=== PATIENT | female | born 1960 | race Caucasian/White ===

== ENCOUNTER 2018-06-10 00:27 | Emergency (ER) | payer BC ==
[~2018-06-10] VITALS: Ht 162.6 cm; Wt 109.8 kg
[~2018-06-10 00:27] MED LIST: COLACE; LEVOTHYROXINE; LOSARTAN; METFORMIN; PROTONIX
[2018-06-10 00:35] VITALS: Ht 162.6 cm; Wt 109.8 kg
--- NOTE | 2018-06-10 01:14 | ERD ---
ER Documentation Chief Complaint Chief Complaint Drooling HPI The patient is a 57-year-old female, presenting to the ER because she first noted her eye fluttering around 9:30 AM. She later noticed drooling around 5 PM while she was brushing her teeth. She complains of eyes watery, denies blurred vision, headache, facial pain, neck pain, decrease sensation of her tongue and unable to close her right eye completely, denies chest pain, dyspnea, abdominal pain, vomiting, dysuria, diarrhea. She does not smoke nor drink Past medical history: Hypothyroidism, hypertension, diabetes mellitus Past surgical history: 3 , tubal ligation, cholecystectomy ROS All systems reviewed and are negative except as per history of present illness. Medications Home Meds Active Scripts Mineral Oil/Lanolin Oil (Lacri-Lube) 3.5 Gm Oint, 1 APPLIC OP as needed for dried eye for 7 Days, #1 EA Prov:JASMIN GERBER MD 06/10/18 Valacyclovir Hcl* (Valtrex*) 500 Mg Tablet, 1000 MG PO TID for 7 Days, TAB Prov:JASMIN GERBER MD 06/10/18 Reported Medications Omeprazole* (Omeprazole*) 20 Mg Capsule.dr, 20 MG PO DAILY, #30 CAP 06/10/18 Levothyroxine Sodium* (Levothyroxine Sodium*) 25 Mcg Tablet, 25 MCG PO BEFORE BREAKFAST, #30 TAB 06/10/18 Metformin* (Glucophage*) 500 Mg Tab, 500 MG PO WITH BREAKFAST DINNE, #30 TAB 06/10/18 Losartan Potassium* (Losartan Potassium*) 50 Mg Tablet, 50 MG PO BID, TAB 06/10/18 Discontinued Reported Medications [Protonix] No Conflict Check 10/24/15 [Levothyroxine] No Conflict Check 10/24/15 [Metformin] No Conflict Check 10/24/15 [Losartan] No Conflict Check 10/24/15 [Colace] No Conflict Check 10/24/15 Allergies Allergies: Coded Allergies: No Known Allergy (Unverified , 06/10/18) PMhx/Soc History of Surgery: Yes ( X3, TUBAL LIGATION, CHOLECYCESTOMY) Anesthesia Reaction: No Hx Neurological Disorder: No Hx Respiratory Disorders: No Hx Cardiac Disorders: Yes (HYPERTENSION) Hx Psychiatric Problems: No Hx Miscellaneous Medical Probl: No Hx Alcohol Use: No Hx Substance Use: No Hx Tobacco Use: No Physical Exam Vitals Vital Signs Date Temp Pulse Resp B/P (MAP) Pulse Ox O2 O2 Flow FiO2 Time Delivery Rate 06/10/18 100 20 173/74 96 Room Air 02:00 (107) 06/10/18 110 16 195/93 98 Room Air 01:40 (127) 06/10/18 117 26 205/98 98 Room Air 00:45 (133) 06/10/18 99.0 111 20 235/109 99 00:35 (151) Physical Exam Const: No acute distress. Head: Atraumatic. Left frontal muscle weakness Eyes: Normal Conjunctiva. Eye watery discharge ENT: Normal External Ears, Nose and Mouth. Unable to close her left eye completely Neck: Full range of motion. No meningismus. Resp: Clear to auscultation bilaterally. Cardio: Regular rate and rhythm. Abd: Soft, non distended, normal bowel sounds, non tender. Skin: No petechiae or rashes. Back: No midline or flank tenderness. Ext: No cyanosis, or edema. Neur: Awake and alert. No focal deficit. Left facial droop Psych: Normal Mood and Affect. Result Diagram: 06/10/18 0110 06/10/18 0110 Results 24 hrs Laboratory Tests Test 06/10/18 01:10 06/10/18 01:15 06/10/18 02:26 White Blood Count 9.3 10^3/ul Red Blood Count 4.79 10^6/ul Hemoglobin 12.7 g/dl Hematocrit 40.6 % Mean Corpuscular Volume 84.8 fl Mean Corpuscular Hemoglobin 26.5 pg Mean Corpuscular Hemoglobin Concent 31.3 g/dl Red Cell Distribution Width 13.4 % Platelet Count 231 10^3/UL Mean Platelet Volume 12.7 fl Immature Granulocytes % 0.400 % Neutrophils % 54.3 % Lymphocytes % 36.1 % Monocytes % 7.5 % Eosinophils % 1.4 % Basophils % 0.3 % Nucleated Red Blood Cells % 0.0 /100WBC Immature Granulocytes # 0.040 10^3/ul Neutrophils # 5.0 10^3/ul Lymphocytes # 3.4 10^3/ul Monocytes # 0.7 10^3/ul Eosinophils # 0.1 10^3/ul Basophils # 0.0 10^3/ul Nucleated Red Blood Cells # 0.0 10^3/ul Prothrombin Time 11.6 Sec Prothrombin Time Ratio 0.9 INR International Normalized Ratio 0.84 Activated Partial Thromboplast Time 28.0 Sec Sodium Level 138 mmol/L Potassium Level 3.7 mmol/L Chloride Level 99 mmol/L Carbon Dioxide Level 24 mmol/L Anion Gap 15 Blood Urea Nitrogen 17 mg/dl Creatinine 0.61 mg/dl Est Glomerular Filtrat Rate mL/min > 60 mL/min Glucose Level 492 mg/dl Calcium Level 9.2 mg/dl Bedside Urine pH (LAB) 6.0 Bedside Urine Protein (LAB) 1+ Bedside Urine Glucose (UA) 0.50% Bedside Urine Ketones (LAB) Negative Bedside Urine Blood Trace-intact Bedside Urine Nitrite (LAB) Negative Bedside Urine Leukocyte Esterase (L Negative Bedside Glucose 399 mg/dL Current Medications Medications Dose Sig/Jimmy Start Time Status Last (Trade) Ordered Route PRN Stop Time Admin Dose Reason Admin Labetalol 20 mg ONCE ONCE 06/10/18 DC 06/10/18 HCl IV 01:30 06/10/18 01:35 (Labetalol) 01:32 Insulin 14 unit ONCE ONCE 06/10/18 DC 06/10/18 Human SC 02:30 06/10/18 02:37 Lispro 02:31 (Humalog) Procedures/[place] [id number] Radiology Main Line: [phone] DIAGNOSTIC IMAGING REPORT Patient: EULALIO VIDAL : 1960 Age: 57 Sex: F [id number] DOS: 06/10/18 0130 Ordering MD: JASMIN GERBER MD Location: E/R Room/Bed: PROCEDURE: CT Brain without contrast. CLINICAL INDICATION: Headache. TECHNIQUE: Axial images from the skull base through the vertex without IV co ntrast. Multiplanar reformatted images were made. Images were reviewed on a PACS workstation. The CTDIvol is 39.64 mGy and the DLP is 634.23 mGy-cm. One or more of the following dose reduction techniques were used: automated exposure control, adjustment of the mA and/or kV according to patient size, or use of iterative reconstruction technique. DICOM images are available. COMPARISON: None. FINDINGS: No acute intracranial hemorrhage or extraaxial fluid collection, midline shift or mass effect. Garber-white delineation is maintained. No identifiable acute or recent territorial infarct. Mild ventricular and sulcal prominence consistent mild generalized volume loss, commensurate with age. No evidence of hydrocephalus. Hypoplastic appearance of the maxillary sinuses, with mild mucosal thickening of the right along with opacification of several right ethmoid air cells. Remainin g paranasal sinuses are clear. Mastoid air cells are clear. Mild calcified intracranial atherosclerosis. Intact calvarium. IMPRESSION: No definite acute intracranial abnormality including no intracranial hemorrhage, mass effect or hydrocephalus. Right-sided paranasal sinus disease includes filling of several right ethmoid air cells and mild mucosal thickening within the hypoplastic right maxillary sinus. Calcified intracranial atherosclerosis RPTAT: [facility] Physician Rad Date Time Electronically viewed and signed by Physician Rad on 06/10/2018 02:45 RF/ CC: JASMIN GERBER MD [id number] EKG: Read by emergency physician Rate/Rhythm: Sinus tachycardia 114 beats/min QRS, ST, T-waves: No ST elevation, no T inversion, LVH Impression: Abnormal EKG MEDICAL MAKING DECISION: The patient is a 57-year-old female, presenting with acute Cat palsy, acute diabetic hyperglycemia, acute accelerated hypertension. She was treated with labetalol 20 mg IV for acute accelerated hypertension, 14 units of Humalog subcu for acute hyperglycemia with good response, is stable for outpatient follow-up The differential diagnoses considered include but are not limited to TIA, medical noncompliance, dietary noncompliance, HHS, DKA Departure Diagnosis: Primary Impression: Cat palsy Additional Impressions: Accelerated hypertension Hyperglycemia Condition: Good Comments She was discharged with Valtrex and Lacri-Lube I discussed the findings with the patient. I advised the patient to follow-up with the primary physician in about 2-3 days, sooner if needed and return if any concern. Disclaimer: Inadvertent spelling and grammatical errors are likely due to EHR/dictation software use and do not reflect on the overall quality of patient care. Also, please note that the electronic time recorded on this note does not necessarily reflect the actual time of the patient encounter. JASMIN GERBER MD Jun 10, 2018 01:14
[2018-06-10] MEDS ORDERED: LABETALOL HCL 20MG INJ IV ONE (01:30)
[2018-06-10] MEDS ORDERED: INSULIN LISPRO 100 UNIT/ML VIAL SC ONE (02:30)
[2018-06-10] MEDS ORDERED: METF-849 PO (02:59)
[2018-06-10] MEDS ORDERED: LOSA50TA14 PO (02:59)
[2018-06-10] MEDS ORDERED: LEVO25TA6 PO (02:59)
[2018-06-10] MEDS ORDERED: OMEP20CA16 PO (02:59)
[2018-06-10] MEDS ORDERED: VALA500T4 PO (03:52)
[2018-06-10] MEDS ORDERED: LACR35O OP (03:53)
[2018-06-10 04:26] VITALS: BP 157/87; PULSE 89; RESP 16
== END 2018-06-10 04:29 | disposition home or self-care (01) ==
LOC: E/R 00:27
DX: G51.0 Bell's palsy (principal); E11.65 Type 2 diabetes mellitus with hyperglycemia; E03.9 Hypothyroidism, unspecified; I10 Essential (primary) hypertension; Z79.84 Long term (current) use of oral hypoglycemic drugs
CPT/HCPCS: 70450; 80048; 81003; 82962; 85025; 85610; 85730; 93005; J1815; Z7610; 36415; 96372; 96374

== ENCOUNTER 2018-07-03 19:35 | Emergency (ER) | payer BC ==
[~2018-07-03] VITALS: Ht 160 cm; Wt 103.0 kg
[~2018-07-03 19:35] MED LIST changes: -COLACE; +LACR35O OP; +LEVO25TA6 PO; -LEVOTHYROXINE; +LOSA50TA14 PO; -LOSARTAN; +METF-849 PO; -METFORMIN; +OMEP20CA16 PO; -PROTONIX; +VALA500T4 PO
[2018-07-03 19:40] VITALS: Ht 160 cm; Wt 103.0 kg
[2018-07-03] MEDS ORDERED: IPRATROPIUM (NEB) 0.5 MG/2.5 ML AMP NEB STA (20:35)
[2018-07-03] MEDS ORDERED: DEXAMETHASONE 10 MG/ML 1 ML INJ IV STA (20:35)
[2018-07-03] MEDS ORDERED: ALBUTEROL 0.083% (NEB) 2.5 MG/3 ML AMP NEB STA (20:35)
[2018-07-03] MEDS ORDERED: SOD CHLORIDE 0.9% 1,000 ML IV STA (20:35)
[2018-07-04] MEDS ORDERED: AZIT250T PO ×2 (00:22→00:24)
[2018-07-04] MEDS ORDERED: PRED50TA PO (00:22)
[2018-07-04] MEDS ORDERED: ALBU18HF INHALATION (00:22)
[2018-07-04 00:31] VITALS: BP 146/75; PULSE 115; RESP 19
--- NOTE | 2018-07-04 03:06 | ERD ---
ER Documentation Chief Complaint Chief Complaint CP WITH SEVERE COUGH/BATRES X 4 DAYS HPI 57-year-old female with a history of hypertension and diabetes presenting with cough for the past 4 days with associated chest discomfort due to her coughing. Her cough is dry without any phlegm production. She also has difficulty speaking as she has lost her voice. She has had associated fevers and chills. She denies any nausea, vomiting, diarrhea. She has not been taking any medications for her symptoms. ROS All systems reviewed and are negative except as per history of present illness. Medications Home Meds Active Scripts Azithromycin* (Zithromax*) 250 Mg Tablet, 250 MG PO .ZPACK DIRECTED, #6 TAB TAKE 500 MG (2 TABS) THE FIRST DAY THEN 250 MG (1 TAB) DAYS 2-5 Prov:FRITZ PARKS MD 07/04/18 Prednisone* (Prednisone*) 50 Mg Tablet, 50 MG PO DAILY, #5 TAB Prov:FRITZ PARKS MD 07/04/18 Albuterol Sulfate* (Ventolin HFA*) 18 Gm Hfa.aer.ad, 2 PUFF INHALATION Q4H PRN for WHEEZING, #1 INHALER Prov:FRITZ PARKS MD 07/04/18 Mineral Oil/Lanolin Oil (Lacri-Lube) 3.5 Gm Oint, 1 APPLIC OP as needed for dried eye for 7 Days, #1 EA Prov:JASMIN GERBER MD 06/10/18 Valacyclovir Hcl* (Valtrex*) 500 Mg Tablet, 1000 MG PO TID for 7 Days, TAB Prov:JASMIN GERBER MD 06/10/18 Reported Medications Omeprazole* (Omeprazole*) 20 Mg Capsule.dr, 20 MG PO DAILY, #30 CAP 06/10/18 Levothyroxine Sodium* (Levothyroxine Sodium*) 25 Mcg Tablet, 25 MCG PO BEFORE BREAKFAST, #30 TAB 06/10/18 Metformin* (Glucophage*) 500 Mg Tab, 500 MG PO WITH BREAKFAST DINNE, #30 TAB 06/10/18 Losartan Potassium* (Losartan Potassium*) 50 Mg Tablet, 50 MG PO BID, TAB 06/10/18 Allergies Allergies: Coded Allergies: No Known Allergy (Unverified , 06/10/18) PMhx/Soc History of Surgery: Yes ( X3, TUBAL LIGATION, CHOLECYSTECTOMY) Anesthesia Reaction: No Hx Neurological Disorder: No Hx Respiratory Disorders: No Hx Cardiac Disorders: Yes (HYPERTENSION) Hx Psychiatric Problems: No Hx Miscellaneous Medical Probl: Yes (DM) Hx Alcohol Use: No Hx Substance Use: No Hx Tobacco Use: No Smoking Status: Never smoker FmHx Family History: No diabetes Physical Exam Vitals Vital Signs Date Temp Pulse Resp B/P (MAP) Pulse Ox O2 O2 Flow FiO2 Time Delivery Rate 07/04/18 115 19 146/75 96 Room Air 00:31 (98) 07/03/18 111 16 147/71 98 Nasal 2.0 22:55 (96) Cannula 07/03/18 109 18 97 21 21:03 07/03/18 100.0 115 18 188/88 95 19:40 (121) Physical Exam Const: No acute distress frequent dry cough on exam. Head: Atraumatic Eyes: Normal Conjunctiva ENT: Normal External Ears, Nose and Mouth.posterior oropharynx normal without erythema or exudate. No stridor. No drooling. Hoarse voice Neck: Full range of motion. No meningismus. Resp: Diminished breath sounds bilaterally with wheezing. No rales or rhonchi Cardio: Tachycardic with regular rhythm, no murmurs Abd: Soft, non tender, non distended. Normal bowel sounds Skin: No petechiae or rashes Back: No midline or flank tenderness Ext: No cyanosis, or edema Neur: Awake and alert Psych: Normal Mood and Affect Result Diagram: 07/03/18210207/03/182103 Results 24 hrs Laboratory Tests Test 07/03/18 21:03 07/03/18 21:04 White Blood Count 8.8 10^3/ul Red Blood Count 4.50 10^6/ul Hemoglobin 12.1 g/dl Hematocrit 37.8 % Mean Corpuscular Volume 84.0 fl Mean Corpuscular Hemoglobin 26.9 pg Mean Corpuscular Hemoglobin Concent 32.0 g/dl Red Cell Distribution Width 14.4 % Platelet Count 245 10^3/UL Mean Platelet Volume 11.5 fl Immature Granulocytes % 0.300 % Neutrophils % 65.0 % Lymphocytes % 21.9 % Monocytes % 9.5 % Eosinophils % 3.0 % Basophils % 0.3 % Nucleated Red Blood Cells % 0.0 /100WBC Immature Granulocytes # 0.030 10^3/ul Neutrophils # 5.7 10^3/ul Lymphocytes # 1.9 10^3/ul Monocytes # 0.8 10^3/ul Eosinophils # 0.3 10^3/ul Basophils # 0.0 10^3/ul Nucleated Red Blood Cells # 0.0 10^3/ul Sodium Level 138 mmol/L Potassium Level 3.6 mmol/L Chloride Level 101 mmol/L Carbon Dioxide Level 27 mmol/L Anion Gap 10 Blood Urea Nitrogen 15 mg/dl Creatinine 0.62 mg/dl Est Glomerular Filtrat Rate mL/min > 60 mL/min Glucose Level 344 mg/dl Calcium Level 9.1 mg/dl Current Medications Medications Dose Sig/Jimmy Start Time Status Last (Trade) Ordered Route PRN Stop Time Admin Dose Reason Admin Sodium 1,000 ml @ Q1H STAT 07/03/18 DC 07/03/18 Chloride 1,000 mls/hr IV 20:35 21:07 07/03/18 21:34 Albuterol 5 mg ONCE STAT 07/03/18 DC 07/03/18 (Proventil NEB 20:35 21:03 0.083% (Neb)) 07/03/18 20:37 Ipratropium 0.5 mg ONCE STAT 07/03/18 DC 07/03/18 [place] NEB 20:35 21:03 (Atrovent 07/03/18 20:37 0.02% (Neb)) 10 mg ONCE STAT 07/03/18 DC 07/03/18 Dexamethasone IV 20:35 21:07 (Decadron) 07/03/18 20:37 Procedures/[facility] EMERGENT LABS AND DIAGNOSTIC STUDIES: Lab Results above were reviewed and interpreted by me. CBC: no anemia or evidence of infection BMP: hyperglycemic without evidence of acidosis. No evidence of electrolyte abnormality, renal failure, hypoglycemia Troponin within normal limits, not indicative of cardiac ischemia Lactate within normal limits without evidence of sepsis or tissue hypoperfusion 12-lead EKG was interpreted by Denice Parks MD: ST at 112 bpm Normal axis Normal intervals No acute ST or T wave changes suggestive of acute ischemia or STEMI. Radiology Results as interpreted by Radiology below were reviewed by Asmita Parks MD: Chest x-ray showed findings consistent with bronchitis, no consolidation Initial Nursing notes reviewed. Previous Medical Records requested via the Electronic Health Record. EMERGENCY DEPARTMENT COURSE / MEDICAL DECISION MAKING: Patient is presenting with symptoms consistent with bronchitis. Initial vitals were notable for tachycardia and fever. Sepsis workup was initiated however lactate was within normal limits, with no evidence of severe sepsis or septic shock. I have a low suspicion for pulmonary embolism, acute coronary syndrome, or pneumonia. Patients symptoms have stabilized while in the department after therapy. Vitals and respiratory status are stable. Patient is appropriate for outpatient supportive treatment and continued follow up with PCP in the next 2 days. If symptoms are not improving or worsening, patient instructed to return to ED for repeat evaluation. Patient's blood pressure was elevated (>120/80) but appears stable without evidence of hypertensive emergency or urgency. The patient was counseled about the risks of hypertension and urged to pursue outpatient monitoring and therapy within a week with their primary care physician. Departure Diagnosis: Primary Impression: Lower respiratory tract infection Additional Impressions: Bronchospasm Hyperglycemia due to type 2 diabetes mellitus Diabetes mellitus fci insulin use: without buttermaker continuous churn use Qualified Codes: E11.65 - Type 2 diabetes mellitus with hyperglycemia Condition: Stable Patient Instructions: Bronchitis, Antiobiotic Treatment (Adult) Additional Instructions: Regresa a la prashanth de emergencias si dar sintomas estan empeorando. FRITZ PARKS MD Jul 04, 2018 03:06
== END 2018-07-04 00:34 | disposition home or self-care (01) ==
LOC: E/R 19:35
DX: J06.9 Acute upper respiratory infection, unspecified (principal); J98.01 Acute bronchospasm; E11.65 Type 2 diabetes mellitus with hyperglycemia; I10 Essential (primary) hypertension; Z79.84 Long term (current) use of oral hypoglycemic drugs
CPT/HCPCS: 71045; 80048; 85025; 87400; 93005; 94664; 96374; J1100; J7030; Z7502; Z7610